=== PATIENT | male | born 1940 | race Hispanic/Latino ===

== ENCOUNTER 2019-12-31 06:18 | Day surgery (SDC) | payer OTHER ==
[~2019-12-31] VITALS: Ht 167.6 cm; Wt 61.2 kg
[~2019-12-31 06:18] MED LIST: ALBU18HF7 IH; AMLO-257 PO; ASPI-1197 PO; BISM262O28 PO; CLOP75TA32 PO; HYDR-3421 PO; LACT10SO46 PO; METO-408 PO; SODIUM CHLORIDE 0.9% 1000ML 1,000 ML IV ONE; VALS160T29 PO
[2019-12-31 07:27] LABS: ALBUMIN 3.6 g/dL (3.5-5.0); BILIRUBIN,TOTAL 0.7 mg/dL (0.2-1.0); CREATININE 3.9 mg/dL (0.5-1.5); POTASSIUM 4.9 mmol/L (3.5-5.1); TOTAL PROTEIN, SERUM 7.1 g/dL (6.0-8.3)
[2019-12-31 07:28] VITALS: BP 124/86
[2019-12-31] MEDS ORDERED: PROPOFOL 10 MG/ML 20ML VIAL IV ONE (08:40)
[2019-12-31] MEDS ORDERED: MIDAZOLAM HCL 1 MG/ML 2ML VIAL ONE (08:41)
[2019-12-31 09:25] VITALS: BP 99/39
[2019-12-31 09:30] VITALS: BP 107/41
[2019-12-31 09:35] VITALS: BP 102/41
[2019-12-31 09:59] VITALS: BP 131/56
== END 2019-12-31 10:03 | disposition home or self-care (01) ==
LOC: DAH 06:18 → ENDO 06:18
PROVIDERS: ATTEND Internal Medicine Gastroenterology
DX: R10.11 Right upper quadrant pain (principal); K29.50 Unspecified chronic gastritis without bleeding; D64.9 Anemia, unspecified; K59.00 Constipation, unspecified; R12 Heartburn; K25.9 Gastric ulcer, unspecified as acute or chronic, without hemorrhage or perforation; K29.70 Gastritis, unspecified, without bleeding; Z20.828 Contact with and (suspected) exposure to other viral communicable diseases; I10 Essential (primary) hypertension; I25.2 Old myocardial infarction; I25.10 Atherosclerotic heart disease of native coronary artery without angina pectoris; M19.90 Unspecified osteoarthritis, unspecified site; Z86.73 Personal history of transient ischemic attack (TIA), and cerebral infarction without residual deficits; Z79.82 Long term (current) use of aspirin; Z79.899 Other long term (current) drug therapy
CPT/HCPCS: 36415 ×2; 43239; 80053; 88305; 88342; 93005; A4215; A4221; A4222; A4223; A4606; A4620; A4657 ×2; A4663; C9803; J2250; J2704; J7030; U0003